=== PATIENT | male | born 1955 | race Caucasian/White ===

== ENCOUNTER → 2016-11-03 | Outpatient (REF) | payer BC, OTHER | LOC: M LAB REF 14:26 | PROVIDERS: ATTEND Physician Assistant Medical | DX: R50.9 Fever, unspecified (principal) ==

== ENCOUNTER → 2017-06-12 | Outpatient (CLI) | payer BC, OTHER ==
[~2017-06-12] MED LIST: GASTROGRAFIN SOLUTION 30ML (Q9963) As Ordered ONE; ISOVUE-370 76% 100ML VIAL (Q9967) As Ordered ONE
--- NOTE | 2017-06-12 16:03 | REP ---
CT of the abdomen and pelvis with IV and oral contrast: There are no comparisons. The patient complains of left lower quadrant pain and has ulcerative colitis. The visualized lung weston are unremarkable. The hepatic parenchyma is homogeneous. The gallbladder, pancreas and spleen are unremarkable. The adrenals, kidneys and abdominal aorta are unremarkable. There is no small bowel distension or wall thickening. There is no colonic distension or wall thickening. The large and small bowel have a normal appearance by CT. There is no ascites or adenopathy. No pericolonic inflammation or phlegmon. Pelvis: The appendix has a normal appearance. There is no ascites or adenopathy. The bladder is incompletely distended but otherwise unremarkable. There is no diverticulosis or diverticulitis. Impression: Essentially negative CT study of the abdomen pelvis. The small bowel and large bowel are unremarkable in appearance. There is no diverticulosis or diverticulitis. No evidence of toxic megacolon. No adenopathy or ascites. Signed by Min Santana MD 06/12/2017 03:55 P
== END ==
LOC: M RAD 12:24
PROVIDERS: ATTEND Nurse Practitioner Adult Health
DX: R10.32 Left lower quadrant pain (principal); K51.00 Ulcerative (chronic) pancolitis without complications

== ENCOUNTER → 2017-10-09 | Outpatient (CLI) | payer BC, OTHER ==
[2017-10-09 21:12] LABS: CHOLESTEROL LEVEL 222 MG/DL (<200); HDL CHOLESTEROL 60 MG/DL (>40); LDL CHOLESTEROL 139.2 MG/DL (<100); NON-HDL-C 162 MG/DL; TRIGLYCERIDES LEVEL 114 MG/DL (<150)
[2017-10-12 00:06] LABS: PSA TOTAL 0.7 ng/mL (0.0-4.0)
== END ==
LOC: M SMT 11:28
DX: F52.21 Male erectile disorder (principal); Z13.220 Encounter for screening for lipoid disorders
CPT/HCPCS: 80061

== ENCOUNTER → 2019-03-26 | Outpatient (CLI) | payer BC, OTHER ==
[2019-03-26 13:36] LABS: ALBUMIN 3.7 GM/DL (3.2-5.2); ALT/SGPT 25 U/L (12-78); BILIRUBIN,TOTAL 0.5 MG/DL (0.2-1.0); BLOOD UREA NITROGEN 18 MG/DL (7-18); CALCIUM LEVEL 8.9 MG/DL (8.8-10.2); CARBON DIOXIDE LEVEL 26 MEQ/L (21-32); CHLORIDE LEVEL 111 MEQ/L (98-107); CHOLESTEROL LEVEL 199 MG/DL (<200); CHOLESTEROL RISK RATIO 3.826 (<5); CK-MB VALUE MASS 1.6 NG/ML (<3.6); CPK CREATINE PHOSPHOKINASE 51 U/L (39-308); CREATININE FOR GFR 1.34 MG/DL (0.70-1.30); GLOMERULAR FILTRATION RATE 57.5 (>49); GLUCOSE, FASTING 107 MG/DL (70-100); HDL CHOLESTEROL 52 MG/DL (>40); LDL CHOLESTEROL 129 MG/DL (<100); MB/CK RELATIVE INDEX 3.14 (< OR =4); NON-HDL-C 147 MG/DL; NT-PRO BNP 512 PG/ML (<125); POTASSIUM SERUM 4.8 MEQ/L (3.5-5.1); SODIUM LEVEL 142 MEQ/L (136-145); TOTAL PROTEIN 7.2 GM/DL (6.4-8.2); TRIGLYCERIDES LEVEL 92 MG/DL (<150); TROPONIN I < 0.02 NG/ML (< 0.10)
[2019-03-26 13:40] LABS: BASO # 0.1 10^3/uL (0.0-0.2); BASO % 0.9 % (0.0-1.0); EOS # 0.3 10^3/uL (0.0-0.50); EOS % 5.2 % (0.0-3.0); HEMATOCRIT 45.8 % (42.0-52.0); HEMOGLOBIN 15.5 g/dl (13.5-17.5); LYMPH # 1.8 10^3/uL (1.5-4.5); MEAN CORPUSCULAR HEMOGLOBIN 31.4 pg (27.0-33.0); MEAN CORPUSCULAR HGB CONC 33.8 g/dl (32.0-36.5); MEAN CORPUSCULAR VOLUME 92.9 fl (80.0-96.0); MONO # 0.4 10^3/uL (0.0-0.8); MONO % 7.3 % (0.0-5.0); NEUTROPHILS % 53.7 % (36.0-66.0); PLATELET COUNT, AUTOMATED 250 10^3/uL (150-450); RED BLOOD COUNT 4.93 10^6/uL (4.30-6.10); WHITE BLOOD COUNT 5.6 10^3/uL (4.0-10.0)
== END ==
LOC: M SMT 10:02
PROVIDERS: ATTEND Physician Assistant
DX: R06.00 Dyspnea, unspecified (principal)

== ENCOUNTER → 2019-11-04 | Outpatient (CLI) | payer BC, OTHER ==
--- NOTE | 2019-11-05 09:32 | REP ---
MRI RIGHT SHOULDER WITHOUT CONTRAST: HISTORY: Impingement syndrome. No comparison radiographs available. Rule out rotator cuff tear. TECHNIQUE: Axial, oblique coronal, and oblique sagittal imaging planes are utilized. T1- and T2-weighted scans are included with and without fat saturation. MRI FINDINGS: There is moderate osteoarthritic hypertrophy, marrow edema, and joint fluid associated at the acromioclavicular joint. There is a small subacromial subdeltoid bursal effusion. The distal clavicle and acromion process spurring indents the musculotendinous junction of the supraspinatus. There is mild acromion process spurring inferolaterally. There is a small quantity of glenohumeral joint fluid. Cortical and medullary bone signal intensity are otherwise normal. There is some swelling and increased signal intensity in the distal supraspinatus tendon on oblique coronal T1-weighted scans consistent with supraspinatus tendinosis. Linear T2 increased signal intensity is seen in the tendon on oblique coronal T2-weighted scans, again consistent with tendinosis. No full-thickness supraspinatus cuff tear is appreciated. Infraspinatus and subscapularis tendons have an intact appearance. There is mild fraying of both the anterior and the posterior cartilaginous labral cartilage. Minimal chondromalacia is seen on the glenoid. There are one or two foci of periarticular T1, T2 hypointensity anteriorly suggestive of possibility of calcific deposits. Correlation with radiographs suggested. One of these is adjacent to the coracoid process and the other adjacent to the biceps tendon, which appears to be intact. No juxta-articular cyst or mass is seen. No abnormal skeletal muscle signal intensity or atrophy. IMPRESSION: Moderate acromioclavicular joint osteoarthritis. Subacromial/subdeltoid bursal effusion. Supraspinatus tendinosis. Mild fraying of the anterior and posterior labral cartilages and mild glenoid chondromalacia. Electronically Signed by Ti Diallo MD 11/05/2019 10:50 A
== END ==
LOC: M RAD 17:14
PROVIDERS: ATTEND Orthopaedic Surgery Sports Medicine
DX: M19.011 Primary osteoarthritis, right shoulder (principal); M25.411 Effusion, right shoulder; M75.41 Impingement syndrome of right shoulder; M94.211 Chondromalacia, right shoulder

== ENCOUNTER → 2020-04-19 | Outpatient (REF) | payer OTHER, BC ==
[2020-05-20 10:47] LABS: HEMATOCRIT 46.6 % (42.0-52.0); HEMOGLOBIN 15.3 g/dl (13.5-17.5); MEAN CORPUSCULAR HEMOGLOBIN 31.3 pg (27.0-33.0); MEAN CORPUSCULAR HGB CONC 32.8 g/dl (32.0-36.5); MEAN CORPUSCULAR VOLUME 95.3 fl (80.0-96.0); PLATELET COUNT, AUTOMATED 249 10^3/uL (150-450); RED BLOOD COUNT 4.89 10^6/uL (4.30-6.10); WHITE BLOOD COUNT 6.1 10^3/uL (4.0-10.0)
[2020-06-03 10:46] LABS: ALBUMIN 4.1 GM/DL (3.2-5.2); ALT/SGPT 24 U/L (12-78); BILIRUBIN,TOTAL 0.7 MG/DL (0.2-1.0); BLOOD UREA NITROGEN 19 MG/DL (7-18); CALCIUM LEVEL 9.2 MG/DL (8.8-10.2); CARBON DIOXIDE LEVEL 31 MEQ/L (21-32); CHLORIDE LEVEL 107 MEQ/L (98-107); CHOLESTEROL LEVEL 166 MG/DL (<200); CHOLESTEROL RISK RATIO 3.074 (<5); CREATININE FOR GFR 1.28 MG/DL (0.70-1.30); GLOMERULAR FILTRATION RATE > 60.0 (>49); GLUCOSE, FASTING 109 MG/DL (70-100); HDL CHOLESTEROL 54 MG/DL (>40); LDL CHOLESTEROL 90 MG/DL (<100); MAGNESIUM LEVEL 2.2 MG/DL (1.8-2.4); NON-HDL-C 112 MG/DL; POTASSIUM SERUM 4.8 MEQ/L (3.5-5.1); SODIUM LEVEL 140 MEQ/L (136-145); TOTAL PROTEIN 7.7 GM/DL (6.4-8.2); TRIGLYCERIDES LEVEL 110 MG/DL (<150)
== END ==
LOC: M PLALAB 07:32
PROVIDERS: ATTEND Physician Assistant
DX: I48.0 Paroxysmal atrial fibrillation (principal); E78.00 Pure hypercholesterolemia, unspecified

== ENCOUNTER → 2020-08-17 | Outpatient (CLI) | payer OTHER, BC ==
[2020-08-17 13:52] LABS: HEMATOCRIT 44.7 % (42.0-52.0); HEMOGLOBIN 14.3 g/dl (13.5-17.5); MEAN CORPUSCULAR HEMOGLOBIN 30.5 pg (27.0-33.0); MEAN CORPUSCULAR VOLUME 95.3 fl (80.0-96.0); PLATELET COUNT, AUTOMATED 212 10^3/uL (150-450); RED BLOOD COUNT 4.69 10^6/uL (4.30-6.10); WHITE BLOOD COUNT 4.9 10^3/uL (4.0-10.0)
[2020-08-17 14:18] LABS: BLOOD UREA NITROGEN 19 MG/DL (7-18); CALCIUM LEVEL 9.7 MG/DL (8.8-10.2); CARBON DIOXIDE LEVEL 30 MEQ/L (21-32); CHLORIDE LEVEL 109 MEQ/L (98-107); CREATININE FOR GFR 1.21 MG/DL (0.70-1.30); GLOMERULAR FILTRATION RATE > 60.0 (>49); GLUCOSE, FASTING 116 MG/DL (70-100); MAGNESIUM LEVEL 2.4 MG/DL (1.8-2.4); SODIUM LEVEL 141 MEQ/L (136-145)
== END ==
LOC: M PLALAB 11:24
PROVIDERS: ATTEND Physician Assistant
DX: I48.0 Paroxysmal atrial fibrillation (principal)

== ENCOUNTER → 2021-02-20 | Outpatient (CLI) | payer OTHER, BC ==
[2021-02-20 16:33] LABS: HEMATOCRIT 45.6 % (42.0-52.0); HEMOGLOBIN 14.8 g/dl (13.5-17.5); MEAN CORPUSCULAR HEMOGLOBIN 30.6 pg (27.0-33.0); MEAN CORPUSCULAR HGB CONC 32.5 g/dl (32.0-36.5); MEAN CORPUSCULAR VOLUME 94.4 fl (80.0-96.0); PLATELET COUNT, AUTOMATED 241 10^3/uL (150-450); RED BLOOD COUNT 4.83 10^6/uL (4.30-6.10); WHITE BLOOD COUNT 5.6 10^3/uL (4.0-10.0)
[2021-02-20 16:57] LABS: BLOOD UREA NITROGEN 20 MG/DL (7-18); CALCIUM LEVEL 9.6 MG/DL (8.8-10.2); CARBON DIOXIDE LEVEL 28 MEQ/L (21-32); CHLORIDE LEVEL 107 MEQ/L (98-107); CREATININE FOR GFR 1.07 MG/DL (0.70-1.30); GLOMERULAR FILTRATION RATE > 60.0 (>49); GLUCOSE, FASTING 75 MG/DL (70-100); MAGNESIUM LEVEL 2.3 MG/DL (1.8-2.4); POTASSIUM SERUM 4.9 MEQ/L (3.5-5.1); SODIUM LEVEL 139 MEQ/L (136-145)
== END ==
LOC: M PLALAB 12:08
PROVIDERS: ATTEND Family Medicine
DX: I48.0 Paroxysmal atrial fibrillation (principal)

== ENCOUNTER → 2021-05-16 | Outpatient (CLI) | payer BC, OTHER ==
[2021-05-16 13:34] LABS: BLOOD UREA NITROGEN 19 MG/DL (7-18); CALCIUM LEVEL 9.1 MG/DL (8.8-10.2); CARBON DIOXIDE LEVEL 27 MEQ/L (21-32); CHLORIDE LEVEL 108 MEQ/L (98-107); CREATININE FOR GFR 1.06 MG/DL (0.70-1.30); GLOMERULAR FILTRATION RATE > 60.0 (>49); GLUCOSE, FASTING 87 MG/DL (70-100); POTASSIUM SERUM 4.2 MEQ/L (3.5-5.1); SODIUM LEVEL 140 MEQ/L (136-145)
== END ==
LOC: M PLALAB 11:45
PROVIDERS: ATTEND Internal Medicine Cardiovascular Disease
DX: I48.19 Other persistent atrial fibrillation (principal)

== ENCOUNTER → 2021-06-19 | Outpatient (CLI) | payer BC, OTHER ==
[2021-06-19 13:39] LABS: BASO % 0.7 % (0.0-1.0); EOS # 0.2 10^3/uL (0.0-0.5); EOS % 2.7 % (0.0-3.0); HEMATOCRIT 47.1 % (42.0-52.0); HEMOGLOBIN 15.3 g/dl (13.5-17.5); LYMPH % 33.8 % (24.0-44.0); MEAN CORPUSCULAR HGB CONC 32.5 g/dl (32.0-36.5); MEAN CORPUSCULAR VOLUME 95.5 fl (80.0-96.0); MONO # 0.5 10^3/uL (0.0-0.8); MONO % 8.1 % (2.0-8.0); NEUTROPHILS # 3.2 10^3/uL (1.5-8.5); NEUTROPHILS % 53.9 % (36.0-66.0); PLATELET COUNT, AUTOMATED 241 10^3/uL (150-450); RED BLOOD COUNT 4.93 10^6/uL (4.30-6.10); WHITE BLOOD COUNT 5.9 10^3/uL (4.0-10.0)
[2021-06-19 15:24] LABS: ALBUMIN 4.1 GM/DL (3.2-5.2); ALT/SGPT 25 U/L (12-78); BILIRUBIN,TOTAL 1.1 MG/DL (0.2-1.0); BLOOD UREA NITROGEN 21 MG/DL (7-18); CALCIUM LEVEL 9.7 MG/DL (8.8-10.2); CARBON DIOXIDE LEVEL 28 MEQ/L (21-32); CHLORIDE LEVEL 111 MEQ/L (98-107); CHOLESTEROL LEVEL 177 MG/DL (<200); CHOLESTEROL RISK RATIO 2.809 (<5); CREATININE FOR GFR 1.17 MG/DL (0.70-1.30); GLOMERULAR FILTRATION RATE > 60.0 (>49); GLUCOSE, FASTING 109 MG/DL (70-100); HDL CHOLESTEROL 63 MG/DL (>40); LDL CHOLESTEROL 92 MG/DL (<100); NON-HDL-C 114 MG/DL; POTASSIUM SERUM 5.2 MEQ/L (3.5-5.1); SODIUM LEVEL 143 MEQ/L (136-145); TOTAL PROTEIN 7.5 GM/DL (6.4-8.2); TRIGLYCERIDES LEVEL 110 MG/DL (<150)
== END ==
LOC: M PLALAB 10:10
PROVIDERS: ATTEND Physician Assistant
DX: E78.00 Pure hypercholesterolemia, unspecified (principal); Z12.5 Encounter for screening for malignant neoplasm of prostate
CPT/HCPCS: 36415; 80053; 80061; 85025; G0103

== ENCOUNTER → 2021-07-18 | Outpatient (CLI) | payer BC, OTHER ==
--- NOTE | 2021-07-18 09:09 | REP ---
INDICATION: ABD BRUIT, EVAL AAA COMPARISON: None. TECHNIQUE: Multiple ultrasonographic images of the abdominal aorta were obtained from the level of the celiac access to the aortoiliac bifurcation and the longitudinal and transverse scan planes along with color Doppler imaging. FINDINGS: The maximal AP dimension of the abdominal aorta as measured in the longitudinal scan plane is 2.3 cm. There is no common iliac arterial ectasia. IMPRESSION: No evidence of abdominal aortic aneurysm. <Electronically signed by Luis Armando Omalley > 07/18/21 [id number]
== END ==
LOC: M RAD 06:55
PROVIDERS: ATTEND Physician Assistant
DX: F45.8 Other somatoform disorders (principal)

== ENCOUNTER → 2021-08-24 | Outpatient (CLI) | payer BC, OTHER ==
[~2021-08-24] MED LIST changes: +ALPR0.5T3 PO; +APRI0.37 PO; +ATEN25TA PO; +ATOR1TAB19 PO; -GASTROGRAFIN SOLUTION 30ML (Q9963) As Ordered ONE; -ISOVUE-370 76% 100ML VIAL (Q9967) As Ordered ONE; +NO ITAB PO; +SILD100T PO; +XARE10TA PO
== END ==
LOC: M LABSMTC 11:11
PROVIDERS: ATTEND Anesthesiology
DX: Z01.812 Encounter for preprocedural laboratory examination (principal); Z11.52 Encounter for screening for COVID-19

== ENCOUNTER 2021-08-29 13:01 | Day surgery (SDC) | payer BC, OTHER ==
[~2021-08-29] VITALS: Ht 188 cm; Wt 112.0 kg
[2021-08-29] MEDS ORDERED: LIDOCAINE VISCOUS 2% SOLN 15ML UDC As Ordered ONE (14:08)
[2021-08-29] MEDS ORDERED: MIDAZOLAM INJ 2MG/2ML VIAL (J2250 PER 1MG) As Ordered ONE ×2 (14:08→14:30)
[2021-08-29 15:16] VITALS: BP 130/85
--- NOTE | 2021-08-29 15:49 | T-ECHO ---
TRANSESOPHAGEAL ECHO DATE: 08/29/2021 REFERRING PROVIDER: Aleida Singh, physician curriculum assistant principal INDICATION: Mitral valve prolapse with mitral regurgitation. PREPROCEDURE DIAGNOSIS: Mitral valve prolapse with mitral regurgitation, atrial septal defect. POSTPROCEDURE DIAGNOSIS: Mitral valve prolapse with severe mitral regurgitation and flail segment of the posterior mitral leaflet with broken chordae, severe mitral regurgitation, secundum atrial septum defect with left atrium to right atrium shunting. PROCEDURE DESCRIPTION: Patient received a total of 6 mg of midazolam intravenous (IV) for IV sedation. He gargled viscous lidocaine prior to the start of the procedure. Rhythm was sinus. Patient tolerated the procedure well without any immediate complications. Esophageal intubation was accomplished by Dr. Hughes without difficulty using a Omalley 2-dimensional omnidirectional transesophageal echocardiogram probe. The left ventricle appeared normal in size and systolic function without regional wall motion abnormalities. Left ventricular ejection fraction (LVEF) 65% by visual assessment. Right ventricle appeared normal in size and systolic function. Right atrium appeared at least mildly enlarged. At least moderate dilatation of the right atrium by visual assessment. Dilatation of the left atrial appendage. Color flow Doppler in the left upper pulmonary vein showed blunting of the systolic flow but no flow reversal in systole. A small secundum atrial septal defect was present with mild intracardiac shunting from left atrium to the right atrium. 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 There was mitral valve prolapse with a small flail segment and an associated broken chordae, probably involving the middle segment of the posterior mitral leaflet. Associated severe mitral regurgitation with a wall jet directed anteriorly along the anterior mitral leaflet and anterior wall of the atrium and reaching the superior roof of the left atrium, consistent with severe mitral regurgitation. The tricuspid leaflets were myxomatous and showed mild prolapse. Moderate tricuspid valve regurgitation was present. No pericardial effusion. Distal aortic arch and descending thoracic aorta appeared normal. Pulmonic valve was only moderately well visualized. Very mild pulmonic valve regurgitation was present. Aortic valve was 3-cuspid and displayed mild focal thickening and focal calcific deposits. Mild aortic valve regurgitation was present. No pericardial effusion. Aleida Hughes
== END 2021-08-29 15:18 | disposition home or self-care (01) ==
LOC: M OPP 13:01
PROVIDERS: ATTEND Internal Medicine Cardiovascular Disease
DX: I34.0 Nonrheumatic mitral (valve) insufficiency (principal); I34.1 Nonrheumatic mitral (valve) prolapse
CPT/HCPCS: 93312; 93320; 93325; J2250

== ENCOUNTER → 2021-10-09 | Outpatient (CLI) | payer BC, OTHER ==
[2021-10-09 15:25] LABS: BASO % 0.7 % (0.0-1.0); EOS # 0.1 10^3/uL (0.0-0.5); EOS % 1.7 % (0.0-3.0); HEMATOCRIT 43.4 % (42.0-52.0); HEMOGLOBIN 14.3 g/dl (13.5-17.5); LYMPH # 2.3 10^3/uL (1.5-5.0); LYMPH % 38.7 % (24.0-44.0); MEAN CORPUSCULAR HEMOGLOBIN 30.9 pg (27.0-33.0); MEAN CORPUSCULAR HGB CONC 32.9 g/dl (32.0-36.5); MEAN CORPUSCULAR VOLUME 93.7 fl (80.0-96.0); MONO # 0.5 10^3/uL (0.0-0.8); MONO % 7.7 % (2.0-8.0); NEUTROPHILS % 50.4 % (36.0-66.0); PLATELET COUNT, AUTOMATED 219 10^3/uL (150-450); RED BLOOD COUNT 4.63 10^6/uL (4.30-6.10)
[2021-10-09 15:29] LABS: BLOOD UREA NITROGEN 21 MG/DL (7-18); CALCIUM LEVEL 9.1 MG/DL (8.8-10.2); CARBON DIOXIDE LEVEL 27 MEQ/L (21-32); CHLORIDE LEVEL 109 MEQ/L (98-107); CREATININE FOR GFR 1.13 MG/DL (0.70-1.30); GLOMERULAR FILTRATION RATE > 60.0 (>49); GLUCOSE, FASTING 98 MG/DL (70-100); POTASSIUM SERUM 4.6 MEQ/L (3.5-5.1); SODIUM LEVEL 142 MEQ/L (136-145)
== END ==
LOC: M PLALAB 12:05
DX: Z01.812 Encounter for preprocedural laboratory examination (principal)

== ENCOUNTER → 2021-10-24 | Outpatient (CLI) | payer BC, OTHER ==
[2021-10-24 15:46] LABS: INR 1.19; PROTHROMBIN TIME 15.5 SECONDS (12.7-14.5)
== END ==
LOC: M PLALAB 13:38
PROVIDERS: ATTEND Family Medicine
DX: I34.0 Nonrheumatic mitral (valve) insufficiency (principal); Z79.01 Long term (current) use of anticoagulants

== ENCOUNTER → 2021-10-26 | Outpatient (CLI) | payer BC, OTHER ==
[2021-10-26 16:16] LABS: INR 1.32; PROTHROMBIN TIME 16.8 SECONDS (12.7-14.5)
== END ==
LOC: M PLALAB 14:26
PROVIDERS: ATTEND Internal Medicine Cardiovascular Disease
DX: I34.0 Nonrheumatic mitral (valve) insufficiency (principal)

== ENCOUNTER → 2021-11-06 | Outpatient (CLI) | payer BC, OTHER ==
[2021-11-06 16:09] LABS: INR 2.3; PROTHROMBIN TIME 25.7 SECONDS (12.7-14.5)
== END ==
LOC: M PLALAB 14:49
PROVIDERS: ATTEND Physician Assistant
DX: Z51.81 Encounter for therapeutic drug level monitoring (principal); Z79.01 Long term (current) use of anticoagulants; I48.0 Paroxysmal atrial fibrillation

== ENCOUNTER → 2021-11-19 | Outpatient (CLI) | payer BC, OTHER ==
[2021-11-19 15:29] LABS: HEMATOCRIT 39.3 % (42.0-52.0); HEMOGLOBIN 12.9 g/dl (13.5-17.5); MEAN CORPUSCULAR HEMOGLOBIN 30.1 pg (27.0-33.0); MEAN CORPUSCULAR HGB CONC 32.8 g/dl (32.0-36.5); MEAN CORPUSCULAR VOLUME 91.6 fl (80.0-96.0); PLATELET COUNT, AUTOMATED 276 10^3/uL (150-450); RED BLOOD COUNT 4.29 10^6/uL (4.30-6.10); WHITE BLOOD COUNT 8.2 10^3/uL (4.0-10.0)
[2021-11-19 15:44] LABS: INR 2.35; PROTHROMBIN TIME 26.1 SECONDS (12.7-14.5)
[2021-11-19 15:55] LABS: BLOOD UREA NITROGEN 17 MG/DL (7-18); CALCIUM LEVEL 9.4 MG/DL (8.8-10.2); CARBON DIOXIDE LEVEL 30 MEQ/L (21-32); CHLORIDE LEVEL 106 MEQ/L (98-107); CREATININE FOR GFR 1.24 MG/DL (0.70-1.30); GLOMERULAR FILTRATION RATE > 60.0 (>49); GLUCOSE, FASTING 101 MG/DL (70-100); MAGNESIUM LEVEL 2.3 MG/DL (1.8-2.4); POTASSIUM SERUM 5.4 MEQ/L (3.5-5.1); SODIUM LEVEL 140 MEQ/L (136-145)
== END ==
LOC: M PLALAB 12:32
PROVIDERS: ATTEND Physician Assistant
DX: I48.0 Paroxysmal atrial fibrillation (principal); I34.0 Nonrheumatic mitral (valve) insufficiency; Z79.01 Long term (current) use of anticoagulants

== ENCOUNTER → 2021-11-27 | Outpatient (REF) | payer BC, OTHER | LOC: M PLALAB 16:46 → M LAB REF 16:46 | PROVIDERS: ATTEND Physician Assistant | DX: E87.5 Hyperkalemia (principal) ==

== ENCOUNTER → 2022-06-26 | Outpatient (CLI) | payer MEDICARE, BC, OTHER ==
[2022-06-26 14:59] LABS: HEMATOCRIT 40.4 % (42.0-52.0); HEMOGLOBIN 13.4 g/dl (13.5-17.5); MEAN CORPUSCULAR HEMOGLOBIN 31.5 pg (27.0-33.0); MEAN CORPUSCULAR HGB CONC 33.2 g/dl (32.0-36.5); MEAN CORPUSCULAR VOLUME 94.8 fl (80.0-96.0); PLATELET COUNT, AUTOMATED 228 10^3/uL (150-450); RED BLOOD COUNT 4.26 10^6/uL (4.30-6.10); WHITE BLOOD COUNT 5.1 10^3/uL (4.0-10.0)
[2022-06-26 15:36] LABS: ERYTHROCYTE SEDIMENTATION RATE 7 mm/hr (0-20)
[2022-06-26 16:18] LABS: BLOOD UREA NITROGEN 16 MG/DL (7-18); CALCIUM LEVEL 8.8 MG/DL (8.8-10.2); CARBON DIOXIDE LEVEL 28 MEQ/L (21-32); CHLORIDE LEVEL 105 MEQ/L (98-107); CREATININE FOR GFR 1.03 MG/DL (0.70-1.30); GLOMERULAR FILTRATION RATE > 60.0 (>49); GLUCOSE, FASTING 83 MG/DL (70-100); POTASSIUM SERUM 4.9 MEQ/L (3.5-5.1); SODIUM LEVEL 138 MEQ/L (136-145)
== END ==
LOC: M PLALAB 10:52
PROVIDERS: ATTEND Nurse Practitioner
DX: K51.90 Ulcerative colitis, unspecified, without complications (principal)

== ENCOUNTER → 2022-08-19 | Outpatient (CLI) | payer MEDICARE, BC, OTHER | LOC: M PLAIMG 14:35 | PROVIDERS: ATTEND Physician Assistant | DX: R91.8 Other nonspecific abnormal finding of lung field (principal) ==

== ENCOUNTER → 2023-01-31 | Outpatient (CLI) | payer MEDICARE, BC, OTHER ==
[2023-01-31 13:22] LABS: ALBUMIN 3.8 G/DL (3.2-5.2); ALKALINE PHOSPHATASE 62 U/L (46-116); ALT/SGPT 19 U/L (7.0-40); AST/SGOT 13 U/L (<34); BILIRUBIN,TOTAL 0.7 MG/DL (0.3-1.2); BLOOD UREA NITROGEN 18 MG/DL (9-23); CALCIUM LEVEL 9.1 MG/DL (8.3-10.6); CARBON DIOXIDE LEVEL 24 MMOL/L (20-31); CHLORIDE LEVEL 108 MMOL/L (98-107); CHOLESTEROL LEVEL 133 MG/DL (<200); CHOLESTEROL RISK RATIO 2.86 (<5); CREATININE FOR GFR 1.03 MG/DL (0.70-1.30); GLOMERULAR FILTRATION RATE > 60.0 (>49); GLUCOSE, FASTING 110 MG/DL (74-106); HDL CHOLESTEROL 46.4 MG/DL (>40); LDL CHOLESTEROL 65.8 MG/DL (<100); NON-HDL-C 86.6 MG/DL; POTASSIUM SERUM 4.5 MMOL/L (3.5-5.1); SODIUM LEVEL 140 MMOL/L (136-145); TOTAL PROTEIN 6.6 G/DL (5.7-8.2); TRIGLYCERIDES LEVEL 104 MG/DL (<150)
[2023-01-31 13:25] LABS: TOTAL 25(OH) VITAMIN D 26.1 NG/ML (20.0-100.0)
== END ==
LOC: M PLALAB 11:11
PROVIDERS: ATTEND Physician Assistant
DX: E78.00 Pure hypercholesterolemia, unspecified (principal); Z12.5 Encounter for screening for malignant neoplasm of prostate
CPT/HCPCS: 36415; 80053; 80061; 82306; G0103

== ENCOUNTER → 2023-07-08 | Outpatient (CLI) | payer MEDICARE, BC, OTHER ==
[2023-07-08 16:36] LABS: BASO % 0.3 % (0.0-1.0); EOS # 0.1 10^3/uL (0.0-0.5); EOS % 1.7 % (0.0-3.0); HEMATOCRIT 45.8 % (42.0-52.0); HEMOGLOBIN 15.1 g/dl (13.5-17.5); LYMPH # 1.4 10^3/uL (1.5-5.0); LYMPH % 24.3 % (24.0-44.0); MEAN CORPUSCULAR HEMOGLOBIN 30.9 pg (27.0-33.0); MEAN CORPUSCULAR VOLUME 93.9 fl (80.0-96.0); MONO # 0.4 10^3/uL (0.0-0.8); MONO % 7.5 % (2.0-8.0); NEUTROPHILS # 3.8 10^3/uL (1.5-8.5); NEUTROPHILS % 65.5 % (36.0-66.0); PLATELET COUNT, AUTOMATED 256 10^3/uL (150-450); RED BLOOD COUNT 4.88 10^6/uL (4.30-6.10); WHITE BLOOD COUNT 5.8 10^3/uL (4.0-10.0)
[2023-07-08 16:58] LABS: PROSTATIC SPECIFIC AG MONITOR 0.54 NG/ML (< 4.00)
[2023-07-08 17:00] LABS: ALBUMIN 3.9 G/DL (3.2-5.2); ALKALINE PHOSPHATASE 59 U/L (46-116); ALT/SGPT 18 U/L (7.0-40); AST/SGOT 14 U/L (<34); BILIRUBIN,TOTAL 0.7 MG/DL (0.3-1.2); BLOOD UREA NITROGEN 18 MG/DL (9-23); CALCIUM LEVEL 9.3 MG/DL (8.3-10.6); CARBON DIOXIDE LEVEL 25 MMOL/L (20-31); CHLORIDE LEVEL 106 MMOL/L (98-107); CHOLESTEROL LEVEL 165 MG/DL (<200); CHOLESTEROL RISK RATIO 3.06 (<5); CREATININE FOR GFR 1.22 MG/DL (0.70-1.30); GLOMERULAR FILTRATION RATE > 60.0 (>49); GLUCOSE, FASTING 84 MG/DL (74-106); HDL CHOLESTEROL 53.9 MG/DL (>40); LDL CHOLESTEROL 80.9 MG/DL (<100); NON-HDL-C 111.1 MG/DL; POTASSIUM SERUM 4.7 MMOL/L (3.5-5.1); SODIUM LEVEL 141 MMOL/L (136-145); TRIGLYCERIDES LEVEL 151 MG/DL (<150)
[2023-07-08 17:02] LABS: TOTAL 25(OH) VITAMIN D 34.7 NG/ML (20.0-100.0)
== END ==
LOC: M PLALAB 12:43
PROVIDERS: ATTEND Physician Assistant
DX: E78.00 Pure hypercholesterolemia, unspecified (principal)

== ENCOUNTER → 2023-09-16 | Outpatient (CLI) | payer MEDICARE, BC, OTHER | LOC: M RAD 17:03 | PROVIDERS: ATTEND Physician Assistant | DX: R91.1 Solitary pulmonary nodule (principal) ==

== ENCOUNTER → 2024-03-18 | Outpatient (CLI) | payer MEDICARE, BC | LOC: M PLAIMG 10:39 | PROVIDERS: ATTEND Physician Assistant | DX: I34.0 Nonrheumatic mitral (valve) insufficiency (principal) ==

== ENCOUNTER → 2024-09-06 | Outpatient (REF) | payer MEDICARE, BC | LOC: M LAB REF 14:50 | PROVIDERS: ATTEND Internal Medicine Gastroenterology | DX: K51.90 Ulcerative colitis, unspecified, without complications (principal) ==

== ENCOUNTER → 2024-10-19 | Outpatient (CLI) | payer MEDICARE, BC ==
[2024-10-19 14:12] LABS: HEMATOCRIT 44.8 % (42.0-52.0); MEAN CORPUSCULAR HEMOGLOBIN 31.1 pg (27.0-33.0); MEAN CORPUSCULAR HGB CONC 33.5 g/dl (32.0-36.5); MEAN CORPUSCULAR VOLUME 92.8 fl (80.0-96.0); PLATELET COUNT, AUTOMATED 213 10^3/uL (150-450); RED BLOOD COUNT 4.83 10^6/uL (4.30-6.10); WHITE BLOOD COUNT 5.8 10^3/uL (4.0-10.0)
[2024-10-19 14:57] LABS: ALBUMIN 3.8 G/DL (3.2-5.2); ALKALINE PHOSPHATASE 69 U/L (40-129); ALT/SGPT 17 U/L (7.0-40); AST/SGOT 12 U/L (<34); BILIRUBIN,TOTAL 0.9 MG/DL (0.3-1.2); BLOOD UREA NITROGEN 17 MG/DL (9-23); CALCIUM LEVEL 9.2 MG/DL (8.3-10.6); CARBON DIOXIDE LEVEL 27 MMOL/L (20-31); CHLORIDE LEVEL 106 MMOL/L (98-107); CHOLESTEROL LEVEL 164 MG/DL (<200); CHOLESTEROL RISK RATIO 3.37 (<5); CREATININE FOR GFR 1.13 MG/DL (0.70-1.30); GLOMERULAR FILTRATION RATE > 60.0 (>49); GLUCOSE, FASTING 107 MG/DL (74-106); HDL CHOLESTEROL 48.6 MG/DL (>40); LDL CHOLESTEROL 85.8 MG/DL (<100); MAGNESIUM LEVEL 1.9 MG/DL (1.8-2.4); NON-HDL-C 115.4 MG/DL; POTASSIUM SERUM 4.5 MMOL/L (3.5-5.1); SODIUM LEVEL 141 MMOL/L (136-145); TOTAL PROTEIN 7.2 G/DL (5.7-8.2); TRIGLYCERIDES LEVEL 148 MG/DL (<150)
== END ==
LOC: M PLALAB 11:59
PROVIDERS: ATTEND Physician Assistant
DX: I48.0 Paroxysmal atrial fibrillation (principal); E78.00 Pure hypercholesterolemia, unspecified

== ENCOUNTER → 2025-05-16 | Outpatient (CLI) | payer MEDICARE, BC ==
[2025-05-16 13:53] LABS: BASO # 0.0 10^3/uL (0.0-0.2); BASO % 0.8 % (0.0-1.0); EOS # 0.3 10^3/uL (0.0-0.5); EOS % 6.2 % (0.0-3.0); LYMPH # 1.4 10^3/uL (1.5-5.0); LYMPH % 28.4 % (24.0-44.0); MONO # 0.4 10^3/uL (0.0-0.8); MONO % 7.2 % (2.0-8.0); NEUTROPHILS # 2.8 10^3/uL (1.5-8.5); NEUTROPHILS % 56.8 % (36.0-66.0); PLATELET COUNT, AUTOMATED 246 10^3/uL (150-450)
[2025-05-16 14:05] LABS: ALT/SGPT 21.0 U/L (7.0-40); AST/SGOT 18.0 U/L (<34); CALCIUM LEVEL 9.3 MG/DL (8.3-10.6); CARBON DIOXIDE LEVEL 27.0 MMOL/L (20-31); CHLORIDE LEVEL 106.0 MMOL/L (98-107); CHOLESTEROL LEVEL 194.0 MG/DL (<200); CHOLESTEROL RISK RATIO 3.27 (<5); CREATININE FOR GFR 1.17 MG/DL (0.70-1.30); GLOMERULAR FILTRATION RATE 67.9 (>49); IRON (FE) 84.0 UG/DL (65-175); LDL CHOLESTEROL 114.9 MG/DL (<100); NON-HDL-C 134.7 MG/DL; PERCENT SATURATION 24.3 % (19.7-50.0); POTASSIUM SERUM 4.6 MMOL/L (3.5-5.1); SODIUM LEVEL 142.0 MMOL/L (136-145); TRIGLYCERIDES LEVEL 99.0 MG/DL (<150)
[2025-05-16 14:07] LABS: FREE T4 1.19 NG/DL (0.89-1.76)
== END ==
LOC: M PLALAB 09:42
PROVIDERS: ATTEND Physician Assistant
DX: E78.00 Pure hypercholesterolemia, unspecified (principal); I48.0 Paroxysmal atrial fibrillation; K51.90 Ulcerative colitis, unspecified, without complications